=== PATIENT | male | born 1945 | race Caucasian/White ===

== ENCOUNTER 2019-10-17 06:11 | Day surgery (SDC) | payer MEDICARE, BC ==
[2019-10-16 11:46] VITALS: BMI 26.4
--- NOTE | 2019-10-16 14:19 | HP ---
HISTORY OF PRESENT ILLNESS: Mr. Carrasquillo is a very pleasant 74-year-old man, here today via referral from his primary care physician, Dr. Payne, for evaluation of lower back pain and bilateral lower extremity pain that best fit an L5 pattern. 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 Pain is improved, but still has significant back pain. He has been treating this with muscle relaxers daily and topical medications with [id number] as prescribed. He feels all this helps quite nicely, but the pain still is present and he and his would like to have him off any prescription medications. MRI disk from outside facility reveals several areas of central canal stenosis, but specifically a rather profound area at L4-L5. PAST MEDICAL HISTORY: Significant for; 1. Hypertension. 2. Gastroesophageal reflux disease. 3. Anxiety. 4. Coronary arterial disease. 5. Hypercholesterolemia. CURRENT MEDICATIONS: 1. Viagra. 2. Abi. 3. Cyclobenzaprine. 4. Celebrex. 5. Pravastatin. 6. . 7. Nadolol. 8. Clonidine. 9. Aspirin. 10. Omeprazole. 11. Hydrochlorothiazide. 12. Olmesartan. PAST SURGICAL HISTORY: Appendectomy and unspecified colon surgery. ALLERGIES: NO KNOWN DRUG ALLERGIES. PHYSICAL EXAMINATION: The patient is alert and oriented x3. Gait is antalgic and slowed. Lower extremity motor exam is normal. 5/5 strength in all movements of the bilateral lower extremities. Negative straight leg raise bilaterally. ASSESSMENT: Lumbar spinal stenosis and neurogenic claudication. PLAN: Dr. Granados met with the patient, reviewed imaging, advocated for an L4-L5 decompression. He explained to the patient about the risks, benefits, and alternatives to the procedure. The patient expressed understanding and elected to move forward with surgery as discussed. I do believe the patient is mentally competent and capable of making medical decisions for himself. We will move forward with surgery as planned. Job ID: [id number]
[2019-10-17] MEDS ORDERED: Bupivacaine PF 0.5% 30 ML VIAL ONE (06:38)
[2019-10-17] MEDS ORDERED: Thrombin 5000 UNITS/5 ML VIAL ONE (06:38)
[2019-10-17] MEDS ORDERED: EPINEPHrine 1 MG/ML AMP ONE (06:38)
[2019-10-17] MEDS ORDERED: Fentanyl 100 MCG/2 ML VIAL ONE (06:58)
[2019-10-17] MEDS ORDERED: hydrALAZINE 20 MG/ML VIAL ONE ×2 (08:07→10:30)
--- NOTE | 2019-10-17 10:23 | OP ---
DATE OF PROCEDURE: 10/17/2019 AUDIOMETRIST: Santi Reyes PA-C. INDICATION: Pain. DIAGNOSIS: Lumbar stenosis. PROCEDURE PERFORMED: L4-L5 lumbar decompression. ANESTHESIA: General. DESCRIPTION OF PROCEDURE: The patient was brought into the operating room and placed under general anesthesia. He was flipped from a supine to prone position on the operating room table. A linear incision was planned over the L4-L5 segment. After prepping and draping and after an appropriate preoperative pause, the incision was created. Soft tissues were swept away from midline. Self-retaining retractors were placed. After confirming the appropriate level with C-arm fluoroscopy, an Adson rongeur was used to move the spinous process of superior aspect of L5 and the inferior aspect of L4. High-speed cutting drill bit as well as 2, 3, and 4 mm Kerrisons were then used to complete the laminectomy. The wound was then irrigated. Hemostasis was maintained throughout. The wound was then closed in anatomic layers and a pressure dressing was applied. There were no known procedural complications. Job ID: [id number]
[2019-10-17] MEDS ORDERED: Tamsulosin HCl 0.4 MG CAP ONE (11:07)
[2019-10-17] MEDS ORDERED: PROPOFOL 200 MG/20 ML VIAL ONE (12:42)
[2019-10-17] MEDS ORDERED: EPHEDRINE 25 MG/5 ML SYRINGE ONE (12:42)
[2019-10-17] MEDS ORDERED: Glycopyrrolate 0.2 MG/ML 5 ML SYRINGE ONE (12:42)
[2019-10-17] MEDS ORDERED: Rocuronium Bromide 10 MG/ML (10ML VIAL) ONE (12:42)
[2019-10-17] MEDS ORDERED: Lidocaine 1% PF 5 ML VIAL ONE (12:42)
[2019-10-17] MEDS ORDERED: PHENYLEPHRINE-NS 100 MCG/ML 10 ML SYRINGE ONE (12:42)
[2019-10-17] MEDS ORDERED: Labetalol HCl 100 MG/20 ML VIAL ONE (12:42)
[2019-10-17] MEDS ORDERED: Ondansetron PF 4 MG/2 ML Vial ONE (12:42)
[2019-10-17] MEDS ORDERED: Dexamethasone 20 MG/5 ML VIAL ONE (12:42)
== END 2019-10-17 13:35 | disposition home or self-care (01) ==
LOC: SDC 06:11
PROVIDERS: ATTEND Neurological Surgery
PROC: 0ST20ZZ Resection of Lumbar Vertebral Disc, Open Approach (ICD-10-PCS; principal; 2019-10-17)
DX: M48.062 Spinal stenosis, lumbar region with neurogenic claudication (principal); I10 Essential (primary) hypertension; I25.10 Atherosclerotic heart disease of native coronary artery without angina pectoris; E78.00 Pure hypercholesterolemia, unspecified; F41.9 Anxiety disorder, unspecified; K21.9 Gastro-esophageal reflux disease without esophagitis; Z79.82 Long term (current) use of aspirin; Z79.899 Other long term (current) drug therapy; Z88.1 Allergy status to other antibiotic agents
CPT/HCPCS: 76000; J0171; J0360; J0690; J3010; S0020